=== PATIENT | male | born 1980 | race African-American/Black ===

== ENCOUNTER 2021-09-17 07:38 | Emergency (ER) | payer SELFPAY ==
[~2021-09-17] VITALS: Ht 180.3 cm; Wt 82.1 kg
[2021-09-17 07:43] VITALS: BP 174/83
--- NOTE | 2021-09-17 08:02 | NUR ---
41 Y/O MALE BIB SELF C/O JITTERINESS AND ANXIEY, STATES THAT HE TOOK 10MG OF MARIJUANA CAPSULE AND A BEER 1 HOUR AGO AND FEELS ANXIOUS AFTER. STATES HE WAS FEELING OUT OF BREATH, LUNG SOUNDS CLEAR, RESPIRATIONS ARE EVEN AND UNLABORED. [facility] PMH: DENIES
--- NOTE | 2021-09-17 08:14 | NUR ---
LAB AT BEDSIDE
[2021-09-17 08:38] LABS: HEMOGLOBIN 9.4 g/dL (12.0-18.0)
[2021-09-17 08:57] LABS: HEMATOCRIT 30.2 % (36-52); MEAN CORPUSCULAR HEMOGLOBIN 23 pg (27-31); MEAN CORPUSCULAR HGB CONC 31 g/dL (33-37); MEAN CORPUSCULAR VOLUME 72.9 fL (80-94); PLATELET COUNT (AUTO) 235 K/uL (140-450); RED BLOOD CELL COUNT(AUTO) 4.14 MIL/uL (4.20-6.10); RED CELL DISTRIBUTION WIDTH 20.2 % (11.6-13.7); WHITE BLOOD COUNT (AUTO) 7.5 K/uL (4.8-10.8)
--- NOTE | 2021-09-17 09:17 | NUR ---
PT OFFERED SNACKS, WATER AND BLANKET FOR COMFORT.
[2021-09-17 09:19] LABS: ALBUMIN 4.2 g/dL (3.4-5.0); ANION GAP 12.8 (8-16); CARBON DIOXIDE 28.3 mmol/L (21-32); CREATININE 1.2 mg/dL (0.6-1.3); MAGNESIUM 2.2 mg/dL (1.8-2.4); POTASSIUM 4.1 mmol/L (3.5-5.1); TOTAL BILIRUBIN 0.8 mg/dL (0.0-1.0)
[2021-09-17 11:00] VITALS: BP 107/60
[2021-09-17 14:22] LABS: LYMPHOCYTES % (MANUAL) 47 % (20-46); MONOCYTES % (MANUAL) 5 % (5-12)
== END 2021-09-17 11:00 | disposition home or self-care (01) ==
LOC: MED 07:38
DX: R06.02 Shortness of breath (principal); R42 Dizziness and giddiness; T50.995A Adverse effect of other drugs, medicaments and biological substances, initial encounter; D63.8 Anemia in other chronic diseases classified elsewhere; F12.10 Cannabis abuse, uncomplicated; Y92.89 Other specified places as the place of occurrence of the external cause
CPT/HCPCS: 36415; 80053; 83735; 85025; 93005; 99284